=== PATIENT | female | born 1980 | race Caucasian/White ===

== ENCOUNTER 2016-10-27 07:21 | Day surgery (SDC) | payer BC ==
[~2016-10-27 07:21] MED LIST: LIDOCAINE W/ SODIUM BICARB 0.5 ML SYR ONE; Lactated Ringers 1,000 ML PRIMARY IV ONE
--- NOTE | 2016-10-27 08:30 | GEN.OPNOTE ---
EGD Operative Note Surgery Date: 10/27/16 Preoperative Diagnosis: Globus sensation Postoperative Diagnosis: Globus sensation Procedure: Esophagogastroduodenoscopy Surgeon: Chester Mak MD Anesthesia Provider: Abiola Woodruff CRNA Anesthesia Type: MAC Indications: Patient has a feeling that there is something the back or throat. Findings: Esophagus: Olympus video EGD scope inserted in the posterior pharynx. Under direct visualization is guided into the hypopharynx. Her tonsils. A little bit swollen but this is under magnification and with the endoscopy scope a poor view. Vocal cords appeared to be normal. The esophagus itself was without pathology. GE Junction : GE junction proximal be 40 cm from incisors Fundus : Scope retroflexed on itself revealing a normal fundus Body : The body of the stomach was within normal limits Prepyloric : Prepyloric area had no abnormal pathology Small Intestine : First second third portion of the duodenum within normal limits A lubricated flexible upper endoscope was inserted and passed through the esophagus and stomach into the duodenum. Additional Details: I do think the patient has a globus sensation. But she needs be treated with a PPI for 8 weeks just cases his reflux. She has persistent symptoms while on a PPI would recommend getting ENT evaluation. If still she's having the sensation she'll need a barium swallow
[2016-10-27 09:07] VITALS: RESP 14
[2016-10-27 09:11] VITALS: TEMP 97.3
== END 2016-10-27 08:49 | disposition home or self-care (01) ==
LOC: SDSC 07:21
PROVIDERS: ATTEND Surgery
DX: F45.8 Other somatoform disorders (principal); G56.21 Lesion of ulnar nerve, right upper limb
CPT/HCPCS: 43235; J2704; J7120

== ENCOUNTER → 2016-11-05 | Outpatient (CLI) | payer BC ==
[2016-11-09 13:49] LABS: PARASITIC EXAM FIN 1356 (())
== END ==
LOC: LAB 09:14
PROVIDERS: ATTEND Family Medicine
DX: R19.7 Diarrhea, unspecified (principal)
CPT/HCPCS: 87046; 87177; 87209; 87328; 87329

== ENCOUNTER → 2017-02-11 | Outpatient (CLI) | payer BC ==
[2017-02-11 09:31] LABS: BASOPHILS # (AUTO) 0.06 10*3/UL; BASOPHILS % (AUTO) 0.6 % (0-1); EOSINOPHILS # (AUTO) 0.15 10*3/UL; EOSINOPHILS % (AUTO) 1.6 % (0-8); HEMATOCRIT 39.9 % (37.0-47.0); MEAN CORPUSCULAR HEMOGLOBIN 29.3 PG (27-31); MEAN CORPUSCULAR HGB CONC 32.6 g/dL (33-37); MEAN CORPUSCULAR VOLUME 90.1 FL (81-99); MEAN PLATELET VOLUME 8.8 FL (7.4-12.2); MONOCYTES # (AUTO) 0.83 10*3/UL (0.3-0.8); MONOCYTES % (AUTO) 8.6 % (5-15); NEUTROPHILS % (AUTO) 59.9 % (50-80); RED BLOOD COUNT 4.43 10^6/uL (4.20-5.40)
[2017-02-11 09:38] LABS: PLATELET MORPHOLOGY COMMENT NORMAL MORPHOLOGY (NORM); RBC MORPHOLOGY COMMENT NORMAL MORPHOLOGY (NORM); WBC MORPHOLOGY COMMENT NORMAL MORPHOLOGY (NORM)
[2017-02-11 10:07] LABS: BLOOD UREA NITROGEN 14 mg/dL (7-22); CALCIUM 9.8 mg/dL (8.7-10.7); EST GLOMERULAR FILTRATION > 60 (>60 ml/min/1.73m(2)); SERUM ALBUMIN 4.7 g/dL (3.5-4.8)
== END ==
LOC: MOB LAB 09:03
PROVIDERS: ATTEND Family Medicine
DX: R14.0 Abdominal distension (gaseous) (principal); N83.292 Other ovarian cyst, left side; J06.9 Acute upper respiratory infection, unspecified
CPT/HCPCS: 36415; 80053; 84443; 84703; 85025; 86304

== ENCOUNTER → 2017-02-16 | Outpatient (CLI) | payer BC ==
--- NOTE | 2017-02-16 10:45 | DI ---
HISTORY: Abdominal distention and bloating. TECHNIQUE: Multiple ultrasound images were obtained of the abdomen. FINDINGS: The liver is unremarkable in size and sonographic texture. No focal lesions are identifie d within the liver. The gallbladder has been removed. The intrahepatic and extrahepatic biliary systems are not dilated. The spleen is not enlarged. The visualized portions of the pancreas, aorta and IVC are sonographically unremarkable. The kidneys are in anatomic position and are unremarkable in size, parenchymal thickness and sonograp hic texture. There is no hydronephrosis, stone or solid renal mass. No mass or free fluid is identified in the upper abdomen. IMPRESSION: 1. Unremarkable abdominal sonogram. NOTE: The interpreting Radiologist was not present at the time of ultrasound interrogation.
== END ==
LOC: US 08:40
PROVIDERS: ATTEND Family Medicine
DX: R14.0 Abdominal distension (gaseous) (principal); N83.292 Other ovarian cyst, left side
CPT/HCPCS: 76700

== ENCOUNTER → 2017-05-10 | Outpatient (CLI) | payer BC ==
--- NOTE | 2017-05-10 14:56 | DI ---
ULTRASOUND OF THE NECK, 05/10/2017 10:50 AM: Clinical History: Mass in the right side of the neck. Previous Exam: None at this facility. Scans are performed through both sides of the neck in multiple projections with the high resolution l inear array probe. Color Doppler ultrasound was also utilized. In the area of the palpable mass, a mildly enlarged lymph node is present and this measures approxima tely 7 x 13 x 25 mm. In eccentric center with vascular flow in the hilum are demonstrated. No solid m ass is appreciated. Scans through the opposite side of the neck show no evidence of a mass or adenopa thy. Readin. There is a mildly enlarged lymph node in the right side of the neck were the palpable lesion is l ocated. No obvious solid mass is seen. Views of the contralateral side are unremarkable. 2. If a significant mass is still felt to be present clinically, then followup with a CT scan of the neck with IV contrast would be indicated.
== END ==
LOC: US 10:46
PROVIDERS: ATTEND Family Medicine
DX: R22.1 Localized swelling, mass and lump, neck (principal); Z72.0 Tobacco use
CPT/HCPCS: 76536